=== PATIENT | male | born 1955 | race Caucasian/White ===

== ENCOUNTER 2017-01-23 12:02 | Emergency (ER) | payer BC ==
[~2017-01-23] VITALS: Ht 172.7 cm; Wt 70.0 kg
[~2017-01-23 12:02] MED LIST: NO MEDS PER PT
[2017-01-23] MEDS ORDERED: DIAZEPAM 5 MG TABLET ONE (12:24)
[2017-01-23] MEDS ORDERED: OXYcodone/APAP 5/325MG TABLET ONE (12:25)
[2017-01-23] MEDS ORDERED: KETOROLAC 30 MG/1 ML ONE (12:25)
[2017-01-23] MEDS ORDERED: OXYcodone/APAP 5/325MG TABLET PO ONE (12:30)
[2017-01-23] MEDS ORDERED: KETOROLAC 30 MG/1 ML IM ONE (12:30)
[2017-01-23] MEDS ORDERED: DIAZEPAM 5 MG TABLET PO ONE (12:30)
[2017-01-23 13:41] VITALS: BP 132/91
== END 2017-01-23 13:43 | disposition home or self-care (01) ==
LOC: ED 13:23
DX: M54.2 Cervicalgia (principal)
CPT/HCPCS: 72050; 96372; 99284; J1885

== ENCOUNTER → 2017-03-06 | Outpatient (CLI) | payer BC | END | disposition home or self-care (01) | LOC: CFH 07:35 | PROVIDERS: ATTEND Internal Medicine Gastroenterology | DX: B18.2 Chronic viral hepatitis C (principal) | CPT/HCPCS: 76705 ==